=== PATIENT | male | born 1980 | race Caucasian/White ===

== ENCOUNTER 2016-06-15 19:41 | Emergency (ER) | payer MEDICAID ==
[2016-06-15 19:51] VITALS: BP 150/95
--- NOTE | 2016-06-15 20:39 | EDM.PDOC ---
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 He has had chronic back pain since he had a work injury in the spring of last year. He was struck by a falling metal object which hit him in the lower left back. There were no fractures but there was extensive bruising. He didn't get seen for the injury but 2 months later he had bloody diarrhea and passed out. He is found to be in hepatic and renal failure and also to have rhabdomyolysis probably from the injury at work. He underwent dialysis every second day from August 2015 for. 4 months and then his kidneys recovered enough that he could walk dialysis. He still has to be careful with some medications and has been advised by her oil scout not to take nonsteroidal anti-inflammatory medication. Apart from being in the hospital he has not been on pain medication for his back but is increasing pain in the last 3-4 days. No fever or chills no nausea or vomiting. He has return to construction work and has not missed any time recently. He did miss about a year of work altogether from the injury. He did undergo colonoscopy, he's not sure what it found. He can taking acetaminophen and topical treatments for his dental pain without relief. Additional history includes subclavian DVT. This was diagnosed when he presented last year with swelling of the veins of his right arm and pain in the right side of his neck. He is on Coumadin still and has an ultrasound scheduled later this week and decision will be made whether to discontinue his Coumadin. Left Oral/Mouth Pain Score (Numeric/FACES): 8 - Related Data Allergies Allergy/AdvReac Type Severity Reaction Status Date / Time Penicillins Allergy Unknown Rash Verified 11/24/15 15:01 Home Meds: Home Meds Ferrous Sulfate [Ferrous Sulfate] 1 tab PO TID 10/04/15 [History] Metoprolol Succinate [Metoprolol Succinate] 1 tab PO DAILY 10/04/15 [History] Clindamycin HCl 150 mg PO TID #24 capsule 06/15/16 [Rx] Warfarin [Coumadin] 10 mg PO DAILY 06/15/16 [History] oxyCODONE 5 - 10 mg PO Q4HR PRN #16 tab 06/15/16 [Rx] traZODone 100 mg PO ONETIME 06/15/16 [History] Past Medical History HEENT History: Reports: Other (see below) Other HEENT History: dental caries Cardiovascular History: Reports: Hypertension, Other (see below) Other Cardiovascular History: 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 hx of blood clots neck arms back Respiratory History: Reports: Asthma Gastrointestinal History: Reports: Other (see below) (Hepatic failure, probably due to renal failure) Other Gastrointestinal History: recent constipation. Genitourinary History: Reports: Dialysis, Renal disease, Other (see below) ( Renal failure) Other Genitourinary History: kidney failure due to hypertension and rhabdomyolysis Musculoskeletal History: Reports: Fracture (Arm), Other (see below) Other Musculoskeletal History: Rhabdomyolysis from work injury to his low back Neurological History: Reports: Concussion Psychiatric History: Reports: Addiction, Other (see below) Other Psychiatric History: clean past 2 months. Hematologic History: Reports: Other (see below) Other Hematologic History: hx of clotting disorder - Infectious Disease History Infectious Disease History: Reports: Chicken pox - Past Surgical History Musculoskeletal Surgical History: Reports: Arthroscopic knee Social & Family History - Family History Hematologic: Reports: Other (see below) Other Hematologic Family History: clotting disorder - Tobacco Use Smoking Status *Q: Current Every Day Smoker Years of Tobacco use: 20 Packs/Tins Daily: 0.5 Used Tobacco, but Quit: No Second Hand Smoke Exposure: Yes - Caffeine Use Caffeine Use: Reports: Soda - Alcohol Use Days Per Week of Alcohol Use: 0 - Recreational Drug Use Recreational Drug Use: No Drug Use in Last 12 Months: Yes Recreational Drug Type: Reports: Methamphetamine Recreational Drug Use Frequency: Not Used In Over 2 Months ED ROS GENERAL - Review of Systems Review Of Systems: See Below Constitutional: Reports: no symptoms HEENT: Reports: Dental pain. Denies: Ear pain, Rhinitis, Throat pain Respiratory: Reports: No Symptoms, Other (Continues to smoke but considerably less) Cardiovascular: Reports: No symptoms Endocrine: Reports: no symptoms GI/Abdominal: Reports: No symptoms : Reports: no symptoms Musculoskeletal: Reports: back pain Skin: Reports: no symptoms Neurological: Reports: No Symptoms Psychiatric: Reports: No symptoms Hematologic/Lymphatic: Reports: no symptoms Immunologic: Reports: no symptoms ED EXAM, GENERAL - Physical Exam Exam: See Below Exam Limited By: No limitations General Appearance: alert, mild distress, other (Mild elevation of blood pressure otherwise vital signs normal) Eye Exam: bilateral eye: normal inspection Ears: normal external exam Nose: normal inspection Throat/Mouth: Normal inspection, Normal gums, Normal voice, No airway compromise , Other (Impaction and probable caries of all 4 wisdom teeth, very tender left lower third molar) Head: atraumatic Neck: normal inspection, supple. No: lymphadenopathy (R), lymphadenopathy (L) Respiratory/Chest: no respiratory distress, lungs clear, chest non-tender Cardiovascular: normal peripheral pulses, regular rate, rhythm, no murmur GI/Abdominal: non tender Back Exam: normal inspection, CVA tenderness (L) Extremities: normal inspection, non-tender Neurological: alert, no motor/sensory deficits Psychiatric: normal affect, normal mood Skin Exam: Warm, Dry, Intact, Normal color, No rash Course - Vital Signs Last Recorded V/S: Last Vital Signs Temp 36.1 C 06/15/16 19:49 Pulse 71 06/15/16 19:49 Resp 16 06/15/16 19:49 BP 150/95 H 06/15/16 19:49 Pulse Ox 97 06/15/16 19:49 - Re-Assessments/Exams Free Text/Narrative Re-Assessment/Exam: 06/15/16 22:05 35-year-old male with chronic back pain since he had a severe injury to his left low back last spring, resulting in rhabdomyolysis leading to renal and hepatic failure, was on dialysis for 4 months to recover from that. Has not been taking any analgesics for his back for the last few days is in pain from his back and a new pain from his 4 wisdom teeth. He does need an oral surgeon but his appointment isn't for 3 weeks. For his tooth and the pain Prescribed clindamycin 150 mg 3 times a day 10 days Percocet 5/325 one to 2 by mouth 4 times a day when necessary 15 tablets Contact his insurance coming to arrange oral surgery appointment Departure - Departure Time of Disposition: 20:33 Disposition: Home, Self-Care 01 Condition: good Clinical Impression: Dental caries, Impacted third molar tooth, Acute exacerbation of chronic low back pain Prescriptions: oxyCODONE 5 - 10 mg PO Q4HR PRN #16 tab PRN Reason: Moderate to severe pain Clindamycin HCl 150 mg PO TID #24 capsule Instructions: Dental Caries, Chronic Back Pain Referrals: Toan Cuevas PA-C [Primary Care Provider] - Forms: ED Department Discharge Additional Instructions: Please make a oral surgeon appointment, contact your insurance either online her by phone to determine who you can go see
== END 2016-06-15 20:46 | disposition home or self-care (01) ==
LOC: JP.ED 19:41
DX: K02.9 Dental caries, unspecified (principal); K01.1 Impacted teeth; M54.5 Low back pain; G89.29 Other chronic pain; I10 Essential (primary) hypertension; F17.210 Nicotine dependence, cigarettes, uncomplicated; Z98.890 Other specified postprocedural states; Z79.01 Long term (current) use of anticoagulants; Z79.899 Other long term (current) drug therapy; Z88.0 Allergy status to penicillin
CPT/HCPCS: 99283

== ENCOUNTER 2016-06-20 10:37 | Emergency (ER) | payer MEDICAID ==
[2016-06-20 10:54] VITALS: BP 142/70
--- NOTE | 2016-06-20 11:19 | EDM.PDOC ---
[id number] ON LEFT SIDE Time Seen by Provider: 06/20/16 11:00 Source: Reports: Patient History Limitations: Reports: No limitations - History of Present Illness INITIAL COMMENTS - FREE TEXT/NARRATIVE: 35-year-old male with ongoing advanced dental decay and pain. He has an appointment the dentist on Tuesday, is taking his antibiotics but is out of pain medication. Associated symptoms: Denies: fever/chills, nausea/vomiting - Related Data Allergies/ADRs: Allergies Allergy/AdvReac Type Severity Reaction Status Date / Time Penicillins Allergy Unknown Rash Verified 11/24/15 15:01 Home Meds: Home Meds Ferrous Sulfate [Ferrous Sulfate] 1 tab PO ASDIRECTED 10/04/15 [History] Metoprolol Succinate [Metoprolol Succinate] 1 tab PO DAILY 10/04/15 [History] Clindamycin HCl 150 mg PO TID #24 capsule 06/15/16 [Rx] Warfarin [Coumadin] 10 mg PO DAILY 06/15/16 [History] oxyCODONE 5 - 10 mg PO Q4HR PRN #16 tab 06/15/16 [Rx] traZODone 100 mg PO ONETIME 06/15/16 [History] Past Medical History HEENT History: Reports: Other (see below) Other HEENT History: dental caries Cardiovascular History: Reports: Hypertension, Other (see below) Other Cardiovascular History: 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 hx of blood clots neck arms back Respiratory History: Reports: Asthma Gastrointestinal History: Reports: Other (see below) Other Gastrointestinal History: recent constipation. Genitourinary History: Reports: Dialysis, Renal disease, Other (see below) Other Genitourinary History: kidney failure due to hypertension and rhabdomyolysis Musculoskeletal History: Reports: Fracture, Other (see below) Other Musculoskeletal History: Rhabdomyolysis from work injury to his low back Neurological History: Reports: Concussion Psychiatric History: Reports: Addiction, Other (see below) Other Psychiatric History: clean past 2 months. Hematologic History: Reports: Other (see below) Other Hematologic History: hx of clotting disorder - Infectious Disease History Infectious Disease History: Reports: Chicken pox - Past Surgical History Musculoskeletal Surgical History: Reports: Arthroscopic knee Social & Family History - Family History Hematologic: Reports: Other (see below) Other Hematologic Family History: clotting disorder - Tobacco Use Smoking Status *Q: Current Every Day Smoker Years of Tobacco use: 20 Packs/Tins Daily: 0.5 Used Tobacco, but Quit: No Second Hand Smoke Exposure: Yes - Caffeine Use Caffeine Use: Reports: Soda - Alcohol Use Days Per Week of Alcohol Use: 0 - Recreational Drug Use Recreational Drug Use: No Drug Use in Last 12 Months: Yes Recreational Drug Type: Reports: Methamphetamine Recreational Drug Use Frequency: Not Used In Over 2 Months ED ROS ENT - Review of Systems Review Of Systems: See Below Constitutional: Denies: fever, chills Respiratory: Denies: Shortness of Breath GI/Abdominal: Denies: Nausea, Vomiting ED EXAM, ENT - Physical Exam Exam: See Below Exam Limited By: No limitations General Appearance: alert, no apparent distress (Looks uncomfortable but not distressed) Mouth/Throat: Other (Widespread advanced dental decay with deep caries of the second molars) Course - Vital Signs Last Recorded V/S: Last Vital Signs Temp 96.4 F 06/20/16 10:56 Pulse 66 06/20/16 10:56 Resp 14 06/20/16 10:56 BP 142/70 H 06/20/16 10:56 Pulse Ox 97 06/20/16 10:56 - Re-Assessments/Exams Free Text/Narrative Re-Assessment/Exam: 06/20/16 11:17 Patient was supplied with 15 more Percocet to use for pain control until his appointment on Tuesday. He'll continue with clindamycin. Departure - Departure Time of Disposition: 11:27 Disposition: Home, Self-Care 01 Condition: good Clinical Impression: Dental caries, Pain due to dental caries Instructions: Dental Caries Referrals: Toan Cuevas PA-C [Primary Care Provider] - Forms: ED Department Discharge Care Plan Goals: Continue with current medications and take Percocet as prescribed.
== END 2016-06-20 11:27 | disposition home or self-care (01) ==
LOC: JP.ED 10:37
DX: K02.9 Dental caries, unspecified (principal); K08.89 Other specified disorders of teeth and supporting structures; I10 Essential (primary) hypertension; F17.210 Nicotine dependence, cigarettes, uncomplicated; Z79.01 Long term (current) use of anticoagulants; Z79.899 Other long term (current) drug therapy; Z88.0 Allergy status to penicillin
CPT/HCPCS: 99283

== ENCOUNTER 2016-09-17 20:10 | Emergency (ER) | payer MEDICAID ==
[2016-09-17 20:24] VITALS: BP 142/81
[2016-09-17] MEDS ORDERED: Ketorolac 60 MG/2 ML SDV IM ONE (21:11)
--- NOTE | 2016-09-17 21:18 | EDM.PDOC ---
ED HPI GENERAL MEDICAL PROBLEM - General Chief Complaint: ENT Problem Stated Complaint: TOOTHACHE Time Seen by Provider: 09/17/16 20:57 Source of Information: Reports: Patient History Limitations: Reports: No Limitations - History of Present Illness INITIAL COMMENTS - FREE TEXT/NARRATIVE: dental pain for one week, here tonight because unable to tolerate the pain. denies fever, chills, nausea, vomiting. has had consult with Oral Surgery, schedule for surgery in October 11, 2016. Onset: Gradual Duration: Getting Worse Location: Reports: Face, Other (dental) Quality: Reports: Sharp, Stabbing Severity: Moderate Improves with: Reports: Medication Worsens with: Reports: Eating Associated Symptoms: Reports: No Other Symptoms Treatments ADMINISTRATIVE OFFICE SPECIALIST: Reports: Acetaminophen Tooth/Teeth Pain Score (Numeric/FACES): 8 - Related Data Allergies Allergy/AdvReac Type Severity Reaction Status Date / Time Penicillins Allergy Unknown Rash Verified 09/17/16 21:01 Home Meds: Home Meds Ferrous Sulfate [Ferrous Sulfate] 1 tab PO ASDIRECTED 10/04/15 [History] Metoprolol Succinate [Metoprolol Succinate] 1 tab PO DAILY 10/04/15 [History] RX: Clindamycin HCl 150 mg PO TID #24 capsule 06/15/16 [Rx] RX: oxyCODONE 5 - 10 mg PO Q4HR PRN #16 tab 06/15/16 [Rx] RX: traZODone 100 mg PO ONETIME 06/15/16 [History] Warfarin [Coumadin] 10 mg PO DAILY 06/15/16 [History] Past Medical History HEENT History: Reports: Other (See Below) Other HEENT History: dental caries Cardiovascular History: Reports: Hypertension Other Cardiovascular History: 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 hx of blood clots neck arms back Respiratory History: Reports: Asthma Gastrointestinal History: Reports: Other (See Below) Other Gastrointestinal History: recent constipation. Genitourinary History: Reports: Dialysis, Renal Disease Other Genitourinary History: kidney failure due to hypertension and rhabdomyolysis Musculoskeletal History: Reports: Fracture, Other (See Below) Other Musculoskeletal History: Rhabdomyolysis from work injury to his low back Neurological History: Reports: Concussion Psychiatric History: Reports: Addiction, Other (See Below) Other Psychiatric History: clean past 2 months. Hematologic History: Reports: Other (See Below) Other Hematologic History: hx of clotting disorder - Infectious Disease History Infectious Disease History: Reports: Chicken Pox - Past Surgical History Musculoskeletal Surgical History: Reports: Arthroscopic Knee Social & Family History - Family History Hematologic: Reports: Other (See Below) Other Hematologic Family History: clotting disorder - Tobacco Use Smoking Status *Q: Current Every Day Smoker Years of Tobacco use: 20 Packs/Tins Daily: 0.5 Used Tobacco, but Quit: No Second Hand Smoke Exposure: Yes - Caffeine Use Caffeine Use: Reports: Soda - Alcohol Use Days Per Week of Alcohol Use: 0 - Recreational Drug Use Recreational Drug Use: Yes Drug Use in Last 12 Months: Yes Recreational Drug Type: Reports: Methamphetamine Recreational Drug Use Frequency: Not Used In Over 2 Months ED ROS ENT - Review of Systems Review Of Systems: See Below Constitutional: Reports: Other (dental pain) HEENT: Reports: Dental Pain Respiratory: Reports: No Symptoms Cardiovascular: Reports: No Symptoms ED EXAM, ENT - Physical Exam Exam: See Below Exam Limited By: No Limitations General Appearance: Alert, WD/WN, Mild Distress Eye Exam: Bilateral Eye: Normal Inspection Ears: Normal External Exam, Normal Canal, Hearing Grossly Normal, Normal TMs Nose: Normal Inspection, Normal Mucousa, No Blood Mouth/Throat: Normal Lips, Normal Oropharynx, Dental Abcess, Dental Pain, Dental Tenderness, Other (multi missing teeth, left upper molar and right lower molar with large cavities,gums tender) Head: Atraumatic, Normocephalic Neck: Normal Inspection, Supple, Non-Tender, Full Range of Motion Respiratory/Chest: No Respiratory Distress, Lungs Clear, Normal Breath Sounds, No Accessory Muscle Use, Chest Non-Tender Cardiovascular: Regular Rate, Rhythm Course - Vital Signs Last Recorded V/S: Last Vital Signs Temp 36.8 C 09/17/16 21:06 Pulse 86 09/17/16 21:06 Resp 16 09/17/16 21:06 BP 142/81 H 09/17/16 21:06 Pulse Ox 96 09/17/16 21:06 - Orders/Labs/Meds Meds: Medications Discontinued Medications Generic Name Dose Route Start Last Admin Trade Name Freq PRN Reason Stop Dose Admin Ketorolac Tromethamine 60 mg 09/17/16 21:11 09/17/16 21:21 Toradol IM 09/17/16 21:12 60 mg ONETIME ONE Administration - Re-Assessments/Exams Free Text/Narrative Re-Assessment/Exam: 09/17/16 -Toradol 60mg im -script for clindamycin and hydrocodone -advised to follow up as schedule -rtc or er if not improved or sx worse Mr. Cardona agrees with plan of care. Departure - Departure Time of Disposition: 20:40 Disposition: Home, Self-Care 01 Condition: Good Clinical Impression: Dental caries extending into dentin - Discharge Information Instructions: Dental Caries Referrals: PCP,None [Primary Care Provider] - Forms: ED Department Discharge Care Plan Goals: dental pain and infection -Toradol 60mg IM -given script; Clindamycin 300mg take three times a day x 10 days -given script; hydrocodone 5-325mg take one tablet every 4 to 6 hours as need for acute pain #6 -continue over the counter Tylenol as directed for pain or fever take medications as prescribed, return to ER for any increased pain, facial swelling, fever, chills or not improved. Keep appt with Oral Surgeon. - Problem List & Annotations (1) Pain due to dental caries SNOMED Code(s): 56315394, 82533361 Code(s): K02.9 - DENTAL CARIES, UNSPECIFIED Status: Acute Priority: High (2) Dental caries extending into dentin SNOMED Code(s): 901732564 Code(s): K02.62 - DENTAL CARIES ON SMOOTH SURFACE PENETRATING INTO DENTIN Status: Acute Priority: High - Problem List Review Problem List Initiated/Reviewed/Updated: Yes - Assessment/Plan Plan: dental pain and infection -Toradol 60mg IM -given script; Clindamycin 300mg take three times a day x 10 days -given script; hydrocodone 5-325mg take one tablet every 4 to 6 hours as need for acute pain #6 -continue over the counter Tylenol as directed for pain or fever take medications as prescribed, return to ER for any increased pain, facial swelling, fever, chills or not improved. Keep appt with Oral Surgeon.
== END 2016-09-17 21:40 | disposition home or self-care (01) ==
LOC: JP.ED 20:10
DX: K02.9 Dental caries, unspecified (principal); F17.210 Nicotine dependence, cigarettes, uncomplicated; J45.909 Unspecified asthma, uncomplicated; I10 Essential (primary) hypertension; Z79.2 Long term (current) use of antibiotics; Z79.899 Other long term (current) drug therapy; Z79.01 Long term (current) use of anticoagulants; Z88.0 Allergy status to penicillin
CPT/HCPCS: 96372; 99283; J1885

== ENCOUNTER 2016-10-13 21:45 | Emergency (ER) | payer MEDICAID ==
[2016-10-13] MEDS ORDERED: Sodium Chloride 0.9% 1,000 ML IV SCH (23:45)
[2016-10-14] MEDS ORDERED: Iopamidol 612 MG/ML 100 ML Bottle IV STA (01:10)
[2016-10-14] MEDS ORDERED: Sodium Chloride 0.9% 71 ML IV STA (01:10)
[2016-10-14 01:49] VITALS: BP 140/80
--- NOTE | 2016-10-14 02:34 | EDM.PDOC ---
ED HPI GENERAL MEDICAL PROBLEM - General Chief Complaint: Gastrointestinal Problem Stated Complaint: R SIDE PAIN / BLOODY STOOLS Time Seen by Provider: 10/13/16 23:41 Source of Information: Reports: Patient History Limitations: Reports: No Limitations - History of Present Illness INITIAL COMMENTS - FREE TEXT/NARRATIVE: History of present illness: [35-year-old male presenting with bright red blood per rectum for the last 3-4 days. He says that he is having blood with every stool but every third stool seems like all he has is bright red blood. This is never happened before. This came on 34 days ago when he was having some right upper quadrant discomfort and he states that when that discomfort left him is when he started bleeding. He's had no nausea vomiting constipation or diarrhea. He's had no fevers or chills. He does have a history of a clot in his neck and arm for which she is supposed to be taking warfarin. He told me that he missed yesterday's dose.] Review of systems: As per history of present illness and below otherwise all systems reviewed and negative. Past medical history: As per history of present illness and as reviewed below otherwise noncontributory. Surgical history: As per history of present illness and as reviewed below otherwise noncontributory. Social history: No reported history of drug or alcohol abuse. Family history: As per history of present illness and as reviewed below otherwise noncontributory. Physical exam: HEENT: Atraumatic, normocephalic, pupils reactive, negative for conjunctival pallor or scleral icterus, mucous membranes moist, throat clear, neck supple, nontender, trachea midline. Lungs: Clear to auscultation, breath sounds equal bilaterally, chest nontender. Heart: S1S2, regular, negative for clicks, rubs, or JVD. Abdomen: Soft, nondistended, nontender. Negative for masses or hepatosplenomegaly. Negative for costovertebral tenderness. Pelvis: Stable nontender. Genitourinary: Deferred. Rectal: Revealed no hemorrhoids or blood present Extremities: Atraumatic, negative for cords or calf pain. Neurovascular unremarkable. Neuro: Awake, alert, oriented. Cranial nerves II through XII unremarkable. Cerebellum unremarkable. Motor and sensory unremarkable throughout. Exam nonfocal. Diagnostics: [CBC complete dental panel INR UA urine drug screen and d-dimer were all done. Nothing remarkable was discovered. His illness 14.8. It surprising that his INR was 1.0 suggesting that he has not been compliant with his warfarin. Abdominal pelvic CT was also done and negative.] Therapeutics: [He received IV fluids while here] Impression: [Bright red blood per rectum] Plan: [I'm recommending that he follow up in the clinic and that he undergo a colonoscopy] Definitive disposition and diagnosis as appropriate pending reevaluation and review of above. Lower Back Pain Score (Numeric/FACES): 4 Right Upper Abdominal Pain Score (Numeric/FACES): 0 - Related Data Allergies Allergy/AdvReac Type Severity Reaction Status Date / Time Penicillins Allergy Unknown Rash Verified 10/13/16 23:21 Home Meds: Home Meds Metoprolol Succinate [Metoprolol Succinate] 1 tab PO DAILY 10/04/15 [History] Warfarin [Coumadin] 10 mg PO DAILY 06/15/16 [History] traZODone 100 mg PO ONETIME 06/15/16 [History] Acetaminophen [Tylenol Extra Strength] 1,000 mg PO ASDIRECTED PRN 10/13/16 [ History] Past Medical History HEENT History: Reports: Other (See Below) Other HEENT History: dental caries Cardiovascular History: Reports: Blood Clots/VTE/DVT, Hypertension Other Cardiovascular History: 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 hx of blood clots neck arms back Respiratory History: Reports: Asthma Gastrointestinal History: Reports: Other (See Below) Other Gastrointestinal History: recent constipation. Genitourinary History: Reports: Dialysis, Renal Disease Other Genitourinary History: kidney failure due to hypertension and rhabdomyolysis Musculoskeletal History: Reports: Fracture, Other (See Below) Other Musculoskeletal History: Rhabdomyolysis from work injury to his low back Neurological History: Reports: Concussion, Migraines Psychiatric History: Reports: Addiction, Anxiety, Depression Other Psychiatric History: clean past 2 months. Hematologic History: Reports: Other (See Below) Other Hematologic History: hx of clotting disorder - Infectious Disease History Infectious Disease History: Reports: Chicken Pox - Past Surgical History Musculoskeletal Surgical History: Reports: Arthroscopic Knee Social & Family History - Family History Hematologic: Reports: Other (See Below) Other Hematologic Family History: clotting disorder - Tobacco Use Smoking Status *Q: Current Every Day Smoker Years of Tobacco use: 20 Packs/Tins Daily: 1 Used Tobacco, but Quit: No Second Hand Smoke Exposure: Yes - Caffeine Use Caffeine Use: Reports: Soda - Alcohol Use Days Per Week of Alcohol Use: 0 - Recreational Drug Use Recreational Drug Use: Yes Drug Use in Last 12 Months: Yes Recreational Drug Type: Reports: Methamphetamine Recreational Drug Use Frequency: Rarely ED ROS GENERAL - Review of Systems Review Of Systems: ROS reveals no pertinent complaints other than HPI. ED EXAM, GI/ABD - Physical Exam Exam: See Below Course - Vital Signs Last Recorded V/S: Last Vital Signs Temp 36.7 C 10/14/16 01:48 Pulse 75 10/14/16 01:48 Resp 16 10/14/16 01:48 BP 140/80 10/14/16 01:48 Pulse Ox 93 L 10/14/16 01:48 - Orders/Labs/Meds Orders: Active Orders 24 hr Category Date Time Status Abdomen Pelvis w Cont [CT] Stat Exams 10/14/16 01:00 Taken Chest 2V [CR] Stat Exams 10/14/16 01:00 Taken Sodium Chloride 0.9% [Normal Saline] 1,000 ml Med 10/13/16 23:45 Active IV ASDIRECTED Medication Orders Sodium Chloride (Normal Saline) 1,000 mls @ 150 mls/hr IV ASDIRECTED SUMI Last Admin: 10/14/16 00:05 Dose: 150 mls/hr Labs: Laboratory Tests 10/13/16 10/13/16 10/13/16 Range/Units 23:42 23:50 23:50 WBC (4.5-11.0) K/uL RBC (4.30-5.90) M/uL Hgb (12.0-15.0) g/dL Hct (40.0-54.0) % MCV (80-98) fL MCH (27-31) pg MCHC (32-36) % Plt Count (150-400) K/uL Neut % (Auto) (36-66) % Lymph % (Auto) (24-44) % [place] % (Auto) (2-6) % Eos % (Auto) (2-4) % Baso % (Auto) (0-1) % PT (9.5-12.0) sec INR (0.80-1.20) D-Dimer, Quantitative < 100 (0.0-400.0) ng/mL Sodium (140-148) mmol/L Potassium (3.6-5.2) mmol/L Chloride (100-108) mmol/L Carbon Dioxide (21-32) mmol/L Anion Gap (5.0-14.0) mmol/L BUN (7-18) mg/dL Creatinine (0.8-1.3) mg/dL Est Cr Clr Drug Dosing mL/min Estimated GFR (MDRD) (>60) Glucose (74-106) mg/dL Calcium (8.5-10.1) mg/dL Total Bilirubin (0.2-1.0) mg/dL AST (15-37) U/L ALT (12-78) U/L Alkaline Phosphatase (46-116) U/L Troponin I (0.000-0.056) ng/mL C-Reactive Protein (0.0-0.3) mg/dL Total Protein (6.4-8.2) g/dL Albumin (3.4-5.0) g/dL Globulin (2.3-3.5) g/dL Albumin/Globulin Ratio (1.2-2.2) Amylase (25-115) U/L Lipase (73-393) U/L Urine Color Yellow Urine Appearance Clear Urine pH 7.0 (4.5-8.0) Ur Specific [place] 1.015 (1.008-1.030) Urine Protein Negative (NEGATIVE) mg/dL Urine Glucose (UA) Normal (NEGATIVE) mg/dL Urine Ketones Negative (NEGATIVE) mg/dL Urine Occult Blood Negative (NEGATIVE) Urine Nitrite Negative (NEGAITVE) Urine Bilirubin Negative (NEGATIVE) Urine Urobilinogen Normal (NORMAL) mg/dL Ur Leukocyte Esterase Negative (NEGATIVE) Urine RBC 0-5 (0-5) Urine WBC 0-5 (0-5) Ur Epithelial Cells Rare Amorphous Sediment Not seen Urine Bacteria Rare Urine Mucus Not seen Urine Opiates Screen Negative (NEGATIVE) Ur Oxycodone Screen Negative (NEGATIVE) Urine Methadone Screen Negative (NEGATIVE) Ur Propoxyphene Screen Negative (NEGATIVE) Ur Barbiturates Screen Negative (NEGATIVE) Ur Tricyclics Screen Negative (NEGATIVE) Ur Phencyclidine Scrn Negative (NEGATIVE) Ur Amphetamine Screen Negative (NEGATIVE) U Methamphetamines Scrn Negative (NEGATIVE) Urine MDMA Screen Negative (NEGATIVE) U Benzodiazepines Scrn Negative (NEGATIVE) U Cocaine Metab Screen Negative (NEGATIVE) U Marijuana (THC) Screen Negative (NEGATIVE) 07/19/17 07/19/17 07/19/17 Range/Units 23:55 23:55 23:55 WBC (4.5-11.0) K/uL RBC (4.30-5.90) M/uL Hgb (12.0-15.0) g/dL Hct (40.0-54.0) % MCV (80-98) fL MCH (27-31) pg MCHC (32-36) % Plt Count (150-400) K/uL Neut % (Auto) (36-66) % Lymph % (Auto) (24-44) % [place] % (Auto) (2-6) % Eos % (Auto) (2-4) % Baso % (Auto) (0-1) % PT 10.7 (9.5-12.0) sec INR 1.00 (0.80-1.20) D-Dimer, Quantitative (0.0-400.0) ng/mL Sodium 140 (140-148) mmol/L Potassium 3.7 (3.6-5.2) mmol/L Chloride 103 (100-108) mmol/L Carbon Dioxide 30 (21-32) mmol/L Anion Gap 7.5 (5.0-14.0) mmol/L BUN 17 (7-18) mg/dL Creatinine 1.1 (0.8-1.3) mg/dL Est Cr Clr Drug Dosing 82.31 mL/min Estimated GFR (MDRD) > 60 (>60) Glucose 84 (74-106) mg/dL Calcium 8.0 L (8.5-10.1) mg/dL Total Bilirubin 0.3 (0.2-1.0) mg/dL AST 35 (15-37) U/L ALT 60 (12-78) U/L Alkaline Phosphatase 73 (46-116) U/L Troponin I < 0.017 (0.000-0.056) ng/mL C-Reactive Protein 0.23 (0.0-0.3) mg/dL Total Protein 6.6 (6.4-8.2) g/dL Albumin 3.5 (3.4-5.0) g/dL Globulin 3.1 (2.3-3.5) g/dL Albumin/Globulin Ratio 1.1 L (1.2-2.2) Amylase 68 (25-115) U/L Lipase 213 (73-393) U/L Urine Color Urine Appearance Urine pH (4.5-8.0) Ur Specific [place] (1.008-1.030) Urine Protein (NEGATIVE) mg/dL Urine Glucose (UA) (NEGATIVE) mg/dL Urine Ketones (NEGATIVE) mg/dL Urine Occult Blood (NEGATIVE) Urine Nitrite (NEGAITVE) Urine Bilirubin (NEGATIVE) Urine Urobilinogen (NORMAL) mg/dL Ur Leukocyte Esterase (NEGATIVE) Urine RBC (0-5) Urine WBC (0-5) Ur Epithelial Cells Amorphous Sediment Urine Bacteria Urine Mucus Urine Opiates Screen (NEGATIVE) Ur Oxycodone Screen (NEGATIVE) Urine Methadone Screen (NEGATIVE) Ur Propoxyphene Screen (NEGATIVE) Ur Barbiturates Screen (NEGATIVE) Ur Tricyclics Screen (NEGATIVE) Ur Phencyclidine Scrn (NEGATIVE) Ur Amphetamine Screen (NEGATIVE) U Methamphetamines Scrn (NEGATIVE) Urine MDMA Screen (NEGATIVE) U Benzodiazepines Scrn (NEGATIVE) U Cocaine Metab Screen (NEGATIVE) U Marijuana (THC) Screen (NEGATIVE) 10/13/16 Range/Units 23:59 WBC 9.8 (4.5-11.0) K/uL RBC 4.79 (4.30-5.90) M/uL Hgb 14.8 (12.0-15.0) g/dL Hct 44.0 (40.0-54.0) % MCV 92 (80-98) fL MCH 31 (27-31) pg MCHC 34 (32-36) % Plt Count 241 (150-400) K/uL Neut % (Auto) 66 (36-66) % Lymph % (Auto) 25 (24-44) % [place] % (Auto) 7 H (2-6) % Eos % (Auto) 1 L (2-4) % Baso % (Auto) 0 (0-1) % PT (9.5-12.0) sec INR (0.80-1.20) D-Dimer, Quantitative (0.0-400.0) ng/mL Sodium (140-148) mmol/L Potassium (3.6-5.2) mmol/L Chloride (100-108) mmol/L Carbon Dioxide (21-32) mmol/L Anion Gap (5.0-14.0) mmol/L BUN (7-18) mg/dL Creatinine (0.8-1.3) mg/dL Est Cr Clr Drug Dosing mL/min Estimated GFR (MDRD) (>60) Glucose (74-106) mg/dL Calcium (8.5-10.1) mg/dL Total Bilirubin (0.2-1.0) mg/dL AST (15-37) U/L ALT (12-78) U/L Alkaline Phosphatase (46-116) U/L Troponin I (0.000-0.056) ng/mL C-Reactive Protein (0.0-0.3) mg/dL Total Protein (6.4-8.2) g/dL Albumin (3.4-5.0) g/dL Globulin (2.3-3.5) g/dL Albumin/Globulin Ratio (1.2-2.2) Amylase (25-115) U/L Lipase (73-393) U/L Urine Color Urine Appearance Urine pH (4.5-8.0) Ur Specific [place] (1.008-1.030) Urine Protein (NEGATIVE) mg/dL Urine Glucose (UA) (NEGATIVE) mg/dL Urine Ketones (NEGATIVE) mg/dL Urine Occult Blood (NEGATIVE) Urine Nitrite (NEGAITVE) Urine Bilirubin (NEGATIVE) Urine Urobilinogen (NORMAL) mg/dL Ur Leukocyte Esterase (NEGATIVE) Urine RBC (0-5) Urine WBC (0-5) Ur Epithelial Cells Amorphous Sediment Urine Bacteria Urine Mucus Urine Opiates Screen (NEGATIVE) Ur Oxycodone Screen (NEGATIVE) Urine Methadone Screen (NEGATIVE) Ur Propoxyphene Screen (NEGATIVE) Ur Barbiturates Screen (NEGATIVE) Ur Tricyclics Screen (NEGATIVE) Ur Phencyclidine Scrn (NEGATIVE) Ur Amphetamine Screen (NEGATIVE) U Methamphetamines Scrn (NEGATIVE) Urine MDMA Screen (NEGATIVE) U Benzodiazepines Scrn (NEGATIVE) U Cocaine Metab Screen (NEGATIVE) U Marijuana (THC) Screen (NEGATIVE) Meds: Medications Generic Name Dose Route Start Last Admin Trade Name Freq PRN Reason Stop Dose Admin Sodium Chloride 1,000 mls @ 150 mls/hr 10/13/16 23:45 10/14/16 00:05 Normal Saline IV 150 mls/hr ASDIRECTED SUMI Administration Discontinued Medications Generic Name Dose Route Start Last Admin Trade Name Freq PRN Reason Stop Dose Admin Sodium Chloride 71 mls @ 3.1 mls/sec 10/14/16 01:10 10/14/16 01:24 Normal Saline IV 10/14/16 01:11 3.1 mls/sec ASDIRECTED STA Administration Iopamidol 100 ml 10/14/16 01:10 10/14/16 01:24 Isovue-300 (61%) IV 10/14/16 01:11 100 ml . DIRECTED STA Administration Departure - Departure Time of Disposition: 02:34 Disposition: Home, Self-Care 01 Condition: Good Clinical Impression: Bright red blood per rectum - Discharge Information Forms: ED Department Discharge Additional Instructions: As we discussed please follow-up with your provider as soon as possible so that he can make arrangements to have a colonoscopy. If you cannot get into your provider I would just recommend seeing whoever you can see first. - My Orders Last 24 Hours: My Active Orders 10/13/16 23:45 Sodium Chloride 0.9% [Normal Saline] 1,000 ml IV ASDIRECTED 10/14/16 01:00 Abdomen Pelvis w Cont [CT] Stat Chest 2V [CR] Stat - Assessment/Plan Last 24 Hours: My Active Orders 10/13/16 23:45 Sodium Chloride 0.9% [Normal Saline] 1,000 ml IV ASDIRECTED 10/14/16 01:00 Abdomen Pelvis w Cont [CT] Stat Chest 2V [CR] Stat
--- NOTE | 2016-10-14 09:11 | CR ---
Chest 2V HISTORY: Shortness of breath. COMPARISON: 11/24/2015. FINDINGS: Cardiac size and pulmonary vessels normal. No focal infiltrates or effusions.
== END 2016-10-14 02:38 | disposition home or self-care (01) ==
LOC: JP.ED 21:45
DX: K62.5 Hemorrhage of anus and rectum (principal); I12.9 Hypertensive chronic kidney disease with stage 1 through stage 4 chronic kidney disease, or unspecified chronic kidney disease; N18.9 Chronic kidney disease, unspecified; F17.210 Nicotine dependence, cigarettes, uncomplicated; J45.909 Unspecified asthma, uncomplicated; G43.909 Migraine, unspecified, not intractable, without status migrainosus; F41.9 Anxiety disorder, unspecified; F32.9 Major depressive disorder, single episode, unspecified; Z99.2 Dependence on renal dialysis; Z86.718 Personal history of other venous thrombosis and embolism; Z79.01 Long term (current) use of anticoagulants; Z88.0 Allergy status to penicillin; Z79.899 Other long term (current) drug therapy
CPT/HCPCS: 36415; 71020; 74177; 80053; 80305; 81001; 82150; 83690; 84484; 85025; 85379; 85610; 86140; 96360; 96361; 99283; J7030; J7040; Q9967

== ENCOUNTER 2016-11-01 06:51 | Day surgery (SDC) | payer MEDICAID ==
[2016-11-01] MEDS ORDERED: Propofol 200 MG/20 ML SDV ONE ×2 (07:00→08:33)
[2016-11-01] MEDS ORDERED: fentaNYL 100 MCG/2 ML SDV ONE (07:00)
[2016-11-01] MEDS ORDERED: Midazolam 1 MG/ML 2 ML SDV ONE (07:00)
[2016-11-01] MEDS ORDERED: Lactated Ringers 1,000 ML IV SCH (08:30)
[2016-11-01 09:22] VITALS: BP 134/73
--- NOTE | 2016-11-01 13:53 | OR ---
DATE OF PROCEDURE: 11/01/2016 POSTOPERATIVE DIAGNOSIS: Hematochezia. POSTOPERATIVE DIAGNOSES: 1. Hematochezia, etiology unknown. 2. Minor hemorrhoids. PROCEDURE: Colonoscopy to the cecum. ANESTHESIA: IV anesthesia with monitored anesthesia care. INDICATION: This 35-year-old white male is referred for a colonoscopy because of hematochezia. He was on Coumadin, this has been stopped. I counseled him for a colonoscopy with possible biopsy and/or polypectomy including risks and alternatives, and he gave his informed consent to proceed. DESCRIPTION OF PROCEDURE: The patient was placed in the left lateral decubitus position. IV anesthesia was administered by the Anesthesia Service. Time-out was held. A rectal exam was performed, which was unremarkable. The flexible video Olympus colonoscope was introduced through his anus, up his rectum, and out his colon all the way to the cecum. Once the cecum was reached, the scope was slowly withdrawn, examining the mucosa throughout. No mucosal abnormalities were noted. No old or new blood was seen anywhere in the lower gastrointestinal tract. We saw nothing that we would expect to bleed. The scope was retroflexed in the rectum with the distal rectum showing some minor hemorrhoidal tissue present. The scope was straightened and removed. He tolerated the procedure well. Luiz Cantu MD /[id number] MTDD
== END 2016-11-01 09:28 | disposition home or self-care (01) ==
LOC: JP.SDS 06:51
PROVIDERS: ATTEND Surgery
DX: K64.9 Unspecified hemorrhoids (principal); K92.1 Melena; I10 Essential (primary) hypertension; F41.9 Anxiety disorder, unspecified; F32.9 Major depressive disorder, single episode, unspecified; N17.9 Acute kidney failure, unspecified; Z88.0 Allergy status to penicillin; F17.210 Nicotine dependence, cigarettes, uncomplicated
CPT/HCPCS: 45378; J2250; J2704; J3010; J7120

== ENCOUNTER 2017-04-12 14:13 | Emergency (ER) | payer MEDICAID ==
[2017-04-12] MEDS ORDERED: Nicotine 14 MG/24 Hr Patch TRDERM ONE (14:42)
--- NOTE | 2017-04-12 15:06 | EDM.PDOCBH ---
<OfficerLarry - Last Filed: 04/12/17 17:32> ED HPI GENERAL MEDICAL PROBLEM - General Chief Complaint: Behavioral/Psych Stated Complaint: EVAL Time Seen by Provider: 04/12/17 15:02 Source of Information: Reports: Patient, Police, RN Notes Reviewed History Limitations: Reports: No Limitations - History of Present Illness INITIAL COMMENTS - FREE TEXT/NARRATIVE: 36-year-old gentleman presents emergency department today complaint of suicidal ideation. He was brought in by law enforcement he has been using methamphetamine states he last used illicit drugs about 4 days ago he does use IV medications also has had unprotected intercourse about a week ago admits that his plan would be to use a firearm over the last couple days he has had increasing thoughts of harming himself. He also complains of a tender left swollen testicle Left Perineal Area Pain Score (Numeric/FACES): 7 - Related Data Allergies Allergy/AdvReac Type Severity Reaction Status Date / Time Penicillins Allergy Unknown Rash Verified 04/12/17 14:30 Home Meds: Home Meds Metoprolol Succinate [Metoprolol Succinate] 50 mg PO DAILY 10/04/15 [History] Warfarin [Coumadin] 10 mg PO .THURS 06/15/16 [History] traZODone 100 mg PO BEDTIME 06/15/16 [History] Acetaminophen [Tylenol Extra Strength] 1,000 mg PO ASDIRECTED PRN 10/13/16 [ History] Warfarin [Coumadin] 5 mg PO .MTWFSS 10/28/16 [History] Doxycycline [Vibramycin] 100 mg PO BID #20 cap 04/12/17 [Rx] Past Medical History HEENT History: Reports: Other (See Below) Other HEENT History: dental caries Cardiovascular History: Reports: Blood Clots/VTE/DVT, Hypertension Other Cardiovascular History: 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 hx of blood clots neck arms back Respiratory History: Reports: Asthma Gastrointestinal History: Reports: Other (See Below) Other Gastrointestinal History: recent constipation. blood in stool 2016 Genitourinary History: Reports: Dialysis, Renal Disease Other Genitourinary History: kidney failure due to hypertension and rhabdomyolysis Musculoskeletal History: Reports: Back Pain, Chronic, Fracture, Other (See Below ) Other Musculoskeletal History: Rhabdomyolysis from work injury to his low back Neurological History: Reports: Concussion, Migraines Psychiatric History: Reports: Addiction, Anxiety, Depression, Suicide Attempt, Suicidal Ideation Other Psychiatric History: clean at least a year Hematologic History: Reports: Other (See Below) Other Hematologic History: hx of clotting disorder - Infectious Disease History Infectious Disease History: Reports: Chicken Pox - Past Surgical History Musculoskeletal Surgical History: Reports: Arthroscopic Knee Social & Family History - Family History Family Medical History: Noncontributory Hematologic: Reports: Other (See Below) Other Hematologic Family History: clotting disorder - Tobacco Use Smoking Status *Q: Heavy Tobacco Smoker Years of Tobacco use: 20 Packs/Tins Daily: 1 Used Tobacco, but Quit: No Second Hand Smoke Exposure: No - Caffeine Use Caffeine Use: Reports: Coffee, Soda - Alcohol Use Days Per Week of Alcohol Use: 0 - Recreational Drug Use Recreational Drug Use: Yes Drug Use in Last 12 Months: Yes Recreational Drug Type: Reports: Methamphetamine Recreational Drug Use Frequency: Daily ED ROS GENERAL - Review of Systems Review Of Systems: See Below Constitutional: Denies: Fever, Chills HEENT: Reports: No Symptoms Respiratory: Reports: No Symptoms Cardiovascular: Reports: No Symptoms GI/Abdominal: Reports: No Symptoms : Reports: Other (Left swollen testicle). Denies: Dysuria, Flank Pain Musculoskeletal: Reports: No Symptoms Skin: Reports: No Symptoms Neurological: Reports: No Symptoms Psychiatric: Reports: Anxiety, Depression, Hallucinations, Suicidal Ideation. Denies: Homicidal Ideation ED EXAM, BEHAVIORAL HEALTH - Physical Exam Exam: See Below Exam Limited By: No Limitations General Appearance: Alert, WD/WN, No Apparent Distress Neck: Normal Inspection, Supple, Non-Tender, Full Range of Motion Respiratory/Chest: No Respiratory Distress, Lungs Clear, Normal Breath Sounds, No Accessory Muscle Use Cardiovascular: Regular Rate, Rhythm, No Murmur GI/Abdominal: Soft, Non-Tender (Male) Exam: No Hernia, Circumcised, Scrotum Tenderness (L). No: Scrotum Tenderness (R), Urethral Discharge COURSE, BEHAVIORAL HEALTH COMP - Course Vital Signs: Last Vital Signs Temp 36.9 C 04/12/17 18:37 Pulse 93 04/12/17 18:37 Resp 16 04/12/17 18:37 BP 139/87 04/12/17 18:37 Pulse Ox 96 04/12/17 18:37 Orders, Labs, Meds: Active Orders 24 hr Category Date Time Status Scrotum and Contents [US] Stat Exams 04/12/17 15:25 Taken CHLAMYDIA,AND GC BY APTIMA Urgent Lab 04/12/17 15:18 Received HEPATITIS PANEL,ACUTE [REF] Stat Lab 04/12/17 15:13 Received RPR-TREP PALLIDIUM AB,REFLEX [REF] Stat Lab 04/12/17 15:13 Received Doxycycline [Vibramycin] Med 04/12/17 17:00 Active 100 mg PO BID Medication Orders Doxycycline Hyclate (Vibramycin) 100 mg PO BID SUMI Last Admin: 04/12/17 16:45 Dose: 100 mg Laboratory Tests 04/12/17 04/12/17 04/12/17 Range/Units 15:03 15:03 15:08 WBC 11.3 H (4.5-11.0) K/uL RBC 5.35 (4.30-5.90) M/uL Hgb 16.2 H (12.0-15.0) g/dL Hct 47.4 (40.0-54.0) % MCV 89 (80-98) fL MCH 30 (27-31) pg MCHC 34 (32-36) % Plt Count 345 (150-400) K/uL Neut % (Auto) 78 H (36-66) % Lymph % (Auto) 14 L (24-44) % [place] % (Auto) 7 H (2-6) % Eos % (Auto) 1 L (2-4) % Baso % (Auto) 0 (0-1) % Sodium (140-148) mmol/L Potassium (3.6-5.2) mmol/L Chloride (100-108) mmol/L Carbon Dioxide (21-32) mmol/L Anion Gap (5.0-14.0) mmol/L BUN (7-18) mg/dL Creatinine (0.8-1.3) mg/dL Est Cr Clr Drug Dosing mL/min Estimated GFR (MDRD) (>60) Glucose (74-106) mg/dL Calcium (8.5-10.1) mg/dL Total Bilirubin (0.2-1.0) mg/dL AST (15-37) U/L ALT (12-78) U/L Alkaline Phosphatase (46-116) U/L Total Protein (6.4-8.2) g/dL Albumin (3.4-5.0) g/dL Globulin (2.3-3.5) g/dL Albumin/Globulin Ratio (1.2-2.2) TSH, Ultra Sensitive (0.358-3.740) uIU/mL Urine Color Yellow Urine Appearance Cloudy Urine pH 6.0 (4.5-8.0) Ur Specific [place] 1.025 (1.008-1.030) Urine Protein 30 H (NEGATIVE) mg/dL Urine Glucose (UA) Normal (NEGATIVE) mg/dL Urine Ketones Negative (NEGATIVE) mg/dL Urine Occult Blood Large (NEGATIVE) Urine Nitrite Negative (NEGAITVE) Urine Bilirubin Negative (NEGATIVE) Urine Urobilinogen Normal (NORMAL) mg/dL Ur Leukocyte Esterase Moderate (NEGATIVE) Urine RBC 5-10 H (0-5) Urine WBC Semi-packed H (0-5) Ur Epithelial Cells Few Amorphous Sediment Not seen Urine Bacteria Many Urine Mucus Moderate Urine Opiates Screen Negative (NEGATIVE) Ur Oxycodone Screen Negative (NEGATIVE) Urine Methadone Screen Negative (NEGATIVE) Ur Propoxyphene Screen Negative (NEGATIVE) Ur Barbiturates Screen Negative (NEGATIVE) Ur Tricyclics Screen Negative (NEGATIVE) Ur Phencyclidine Scrn Negative (NEGATIVE) Ur Amphetamine Screen Positive H (NEGATIVE) U Methamphetamines Scrn Positive H (NEGATIVE) Urine MDMA Screen Negative (NEGATIVE) U Benzodiazepines Scrn Negative (NEGATIVE) U Cocaine Metab Screen Negative (NEGATIVE) U Marijuana (THC) Screen Negative (NEGATIVE) HIV-1 Ab Rapid Screen (NON-REACT.) 04/12/17 04/12/17 04/12/17 Range/Units 15:08 15:08 15:13 WBC (4.5-11.0) K/uL RBC (4.30-5.90) M/uL Hgb (12.0-15.0) g/dL Hct (40.0-54.0) % MCV (80-98) fL MCH (27-31) pg MCHC (32-36) % Plt Count (150-400) K/uL Neut % (Auto) (36-66) % Lymph % (Auto) (24-44) % [place] % (Auto) (2-6) % Eos % (Auto) (2-4) % Baso % (Auto) (0-1) % Sodium 142 (140-148) mmol/L Potassium 4.5 (3.6-5.2) mmol/L Chloride 102 (100-108) mmol/L Carbon Dioxide 31 (21-32) mmol/L Anion Gap 9.3 (5.0-14.0) mmol/L BUN 17 (7-18) mg/dL Creatinine 1.0 (0.8-1.3) mg/dL Est Cr Clr Drug Dosing 89.69 mL/min Estimated GFR (MDRD) > 60 (>60) Glucose 90 (74-106) mg/dL Calcium 9.2 (8.5-10.1) mg/dL Total Bilirubin 0.4 (0.2-1.0) mg/dL AST 21 (15-37) U/L ALT 40 (12-78) U/L Alkaline Phosphatase 72 (46-116) U/L Total Protein 7.2 (6.4-8.2) g/dL Albumin 3.6 (3.4-5.0) g/dL Globulin 3.6 H (2.3-3.5) g/dL Albumin/Globulin Ratio 1.0 L (1.2-2.2) TSH, Ultra Sensitive 1.459 (0.358-3.740) uIU/mL Urine Color Urine Appearance Urine pH (4.5-8.0) Ur Specific [place] (1.008-1.030) Urine Protein (NEGATIVE) mg/dL Urine Glucose (UA) (NEGATIVE) mg/dL Urine Ketones (NEGATIVE) mg/dL Urine Occult Blood (NEGATIVE) Urine Nitrite (NEGAITVE) Urine Bilirubin (NEGATIVE) Urine Urobilinogen (NORMAL) mg/dL Ur Leukocyte Esterase (NEGATIVE) Urine RBC (0-5) Urine WBC (0-5) Ur Epithelial Cells Amorphous Sediment Urine Bacteria Urine Mucus Urine Opiates Screen (NEGATIVE) Ur Oxycodone Screen (NEGATIVE) Urine Methadone Screen (NEGATIVE) Ur Propoxyphene Screen (NEGATIVE) Ur Barbiturates Screen (NEGATIVE) Ur Tricyclics Screen (NEGATIVE) Ur Phencyclidine Scrn (NEGATIVE) Ur Amphetamine Screen (NEGATIVE) U Methamphetamines Scrn (NEGATIVE) Urine MDMA Screen (NEGATIVE) U Benzodiazepines Scrn (NEGATIVE) U Cocaine Metab Screen (NEGATIVE) U Marijuana (THC) Screen (NEGATIVE) HIV-1 Ab Rapid Screen Non-reactive (NON-REACT.) Medications Generic Name Dose Route Start Last Admin Trade Name Freq PRN Reason Stop Dose Admin Doxycycline Hyclate 100 mg 04/12/17 17:00 04/12/17 16:45 Vibramycin PO 100 mg BID SUMI Administration Discontinued Medications Generic Name Dose Route Start Last Admin Trade Name Sydney PRN Reason Stop Dose Admin Ceftriaxone Sodium 250 mg/ 0 mg 04/12/17 16:30 04/12/17 16:46 Lidocaine HCl 0.5 ml IM 04/12/17 16:31 1 inj ONETIME ONE Administration Ketorolac Tromethamine 60 mg 04/12/17 16:51 04/12/17 17:11 Toradol IM 04/12/17 16:52 60 mg ONETIME ONE Administration Nicotine 14 mg 04/12/17 14:42 04/12/17 14:52 Habitrol TRDERM 04/12/17 14:43 14 mg ONETIME ONE Administration Departure - Departure Disposition: DC/Tfer to Psych Hosp/Unit [facility] Clinical Impression: Depressive disorder, Suicidal ideation, Epididymitis - Discharge Information Referrals: Toan Cuevas PA-C [Primary Care Provider] - Forms: ED Department Discharge - Assessment/Plan Plan: Assessment Acuity = acute Site and laterality = epididymitis, suicidal ideation complicated patient with known history of methamphetamine use Etiology = bacterial cause for the epididymitis unclear etiology for suicidal ideation probable depression component Manifestations = left swollen red testicle Location of injury = Home Lab values = CBC, CMP unremarkable urinalysis does have packed WBCs consistent with pyuria urine drug screen positive for methamphetamine, HIV 1 and 2 are negative Chlamydia gonorrhea hepatitis panel all pending Plan He was given 250 mg Rocephin started on.see 100 mg by mouth twice a day 10 days continue trying to find placement for him for suicidal ideation This note was dictated using [employer] voice recognition software please call with any questions on syntax or [place]. <Keenan Mcdnoough - Last Filed: 04/12/17 19:01> COURSE, BEHAVIORAL HEALTH COMP - Course Re-Assessment/Re-Exam: Patient has been accepted at [facility] Diagnosis Depressive disorder Suicidal ideation Epididymitis Transfer hold completed Has been prescribed doxycycline 100 mg twice daily for 10 days Departure - Departure Time of Disposition: 20:00 Condition: Good
[2017-04-12] MEDS ORDERED: cefTRIAXone 0.25 GM, Lidocaine 1% 2.1 ML IM ONE ×2 (16:10)
[2017-04-12] MEDS ORDERED: cefTRIAXone 250 MG, Lidocaine 1% 0.5 ML IM ONE ×2 (16:30)
[2017-04-12] MEDS ORDERED: Ketorolac 60 MG/2 ML SDV IM ONE (16:51)
[2017-04-12] MEDS ORDERED: Doxycycline 100 MG Cap PO SCH (17:00)
[2017-04-12 22:39] VITALS: BP 125/76
--- NOTE | 2017-04-13 08:28 | US ---
Scrotum and Contents HISTORY: pain swelling left testicle FINDINGS: Both testicles are within normal limits in size and echogenicity. The right testicle measures 2.7 x 2 .1 x 1.7 cm. The left measures 3.1 x 2.4 x 1.6 cm. Homogeneous echotexture is seen throughout both te sticles. No cystic or solid testicular mass is identified. There is good symmetric color Doppler bloo d flow and normal Doppler waveform within each testicle. There is no evidence for testicular torsion. Tail of the left epididymis is prominent with increased color Doppler flow suggesting possible left e pididymitis. Right epididymis is unremarkable. No hydrocele or varicocele formation can be seen. No e pididymal mass or cyst is present. There is no scrotal wall thickening. IMPRESSION: 1. No testicular abnormality identified. No signs of mass, testicular inflammation, or evidence for t orsion. 2. Enlarged tail of the left epididymis with increased color Doppler blood flow suggests possible lef t epididymitis.
== END 2017-04-12 23:56 ==
LOC: JP.ED 14:13
DX: F32.9 Major depressive disorder, single episode, unspecified (principal); R45.851 Suicidal ideations; N45.1 Epididymitis; B96.89 Other specified bacterial agents as the cause of diseases classified elsewhere; F15.90 Other stimulant use, unspecified, uncomplicated; F17.210 Nicotine dependence, cigarettes, uncomplicated; Z88.0 Allergy status to penicillin; Z79.01 Long term (current) use of anticoagulants; Z79.899 Other long term (current) drug therapy
CPT/HCPCS: 36415; 76870; 80053; 80074; 80305; 81001; 84443; 85025; 86780; 87449; 87491; 87591; 96372; 99285; A9270; J0696; J1885; 99284

== ENCOUNTER 2019-07-30 15:16 | Emergency (ER) | payer MEDICAID ==
[2019-07-30 15:41] VITALS: BP 166/99; PULSE 117
[2019-07-30] MEDS ORDERED: Ketorolac 60 MG/2 ML SDV IM ONE (15:59)
--- NOTE | 2019-07-30 16:03 | EDM.PDOC ---
ED HPI GENERAL MEDICAL PROBLEM - General Chief Complaint: General Stated Complaint: CHEST PAIN Time Seen by Provider: 07/30/19 15:38 Source of Information: Reports: Patient, Old Records, RN Notes Reviewed History Limitations: Reports: No Limitations - History of Present Illness INITIAL COMMENTS - FREE TEXT/NARRATIVE: 38-year-old gentleman presents emergency department a complaint of chest pain, he has had chest pain for 10 days has been extensively evaluated by the urgent care department which included CBC CMP troponin EKG chest x-ray upper extremity ultrasound and CT angiography of the chest all studies were unremarkable. He presents to the emergency department today for further evaluation he does have a history of pulmonary embolism not taking any blood thinner secondary to cost. He has not taken anything for the pain - Related Data Allergies Allergy/AdvReac Type Severity Reaction Status Date / Time Penicillins Allergy Unknown Rash Verified 07/30/19 15:30 Home Meds: Home Meds traZODone 100 mg PO BEDTIME 06/15/16 [History] Past Medical History HEENT History: Reports: Other (See Below) Other HEENT History: dental caries Cardiovascular History: Reports: Blood Clots/VTE/DVT, Hypertension Other Cardiovascular History: 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 hx of blood clots neck arms back Respiratory History: Reports: Asthma Gastrointestinal History: Reports: Other (See Below) Other Gastrointestinal History: recent constipation. blood in stool 2016 Genitourinary History: Reports: Dialysis, Renal Disease Other Genitourinary History: kidney failure due to hypertension and rhabdomyolysis Musculoskeletal History: Reports: Back Pain, Chronic, Fracture, Other (See Below ) Other Musculoskeletal History: Rhabdomyolysis from work injury to his low back Neurological History: Reports: Concussion, Migraines Psychiatric History: Reports: Addiction, Anxiety, Depression, Suicide Attempt, Suicidal Ideation Other Psychiatric History: clean at least a year Hematologic History: Reports: Other (See Below) Other Hematologic History: hx of clotting disorder - Infectious Disease History Infectious Disease History: Reports: Chicken Pox - Past Surgical History Musculoskeletal Surgical History: Reports: Arthroscopic Knee Social & Family History - Family History Family Medical History: Noncontributory Hematologic: Reports: Other (See Below) Other Hematologic Family History: clotting disorder - Tobacco Use Packs/Tins Daily: 1 - Caffeine Use Caffeine Use: Reports: Soda - Recreational Drug Use Recreational Drug Use: Yes Recreational Drug Type: Reports: Methamphetamine Recreational Drug Use Frequency: Monthly ED ROS GENERAL - Review of Systems Review Of Systems: See Below Constitutional: Reports: No Symptoms HEENT: Reports: No Symptoms Respiratory: Reports: No Symptoms Cardiovascular: Reports: Chest Pain GI/Abdominal: Reports: No Symptoms ED EXAM, GENERAL - Physical Exam Exam: See Below Exam Limited By: No Limitations General Appearance: Alert, WD/WN, No Apparent Distress Neck: Normal Inspection, Supple, Non-Tender, Full Range of Motion Respiratory/Chest: No Respiratory Distress (He can smell the stickiness), Lungs Clear, Normal Breath Sounds, No Accessory Muscle Use, Other (Chest is tender to palpation along the right side superior aspect) Cardiovascular: Regular Rate, Rhythm, No Murmur Course - Vital Signs Last Recorded V/S: Last Vital Signs Temp 98.9 F 07/30/19 15:31 Pulse 117 H 07/30/19 15:31 Resp 18 07/30/19 15:31 BP 166/99 H 07/30/19 15:31 Pulse Ox 97 07/30/19 15:31 - Orders/Labs/Meds Meds: Medications Discontinued Medications Generic Name Dose Route Start Last Admin Trade Name Sydney PRN Reason Stop Dose Admin Ketorolac Tromethamine 60 mg 07/30/19 15:59 07/30/19 16:03 Toradol IM 07/30/19 16:00 60 mg ONETIME ONE Administration Departure - Departure Time of Disposition: 16:34 Disposition: Home, Self-Care 01 Condition: Fair Clinical Impression: Chest wall pain - Discharge Information Instructions: Chest Wall Pain, [id number] Referrals: PCP,None [Primary Care Provider] - Forms: ED Department Discharge Additional Instructions: Try the ibuprofen for the next 3 to 4 days and then establish with primary care for further evaluation, call or return to the emergency department worsening of symptoms Sepsis Event Note - Evaluation Sepsis Screening Result: No Definite Risk - Focused Exam Vital Signs: Vital Signs Temp Pulse Resp BP Pulse Ox 07/30/19 15:31 98.9 F 117 H 18 166/99 H 97 07/30/19 15:26 98.9 F 117 H 18 166/99 H 97 Date Exam was Performed: 07/30/19 Time Exam was Performed: 16:34 - Assessment/Plan Plan: Assessment Acuity = acute Site and laterality = chest wall pain Etiology = probable pleurisy Manifestations = none Location of injury = Home Lab values = none Plan He had some relief with the Toradol provided plan is to use ibuprofen over the next couple days and establish with primary care for further evaluation This note was dictated using [employer] voice recognition software please call with any questions on syntax or grammar.
== END 2019-07-30 16:50 | disposition home or self-care (01) ==
LOC: JP.ED 15:16
DX: R07.89 Other chest pain (principal); J45.909 Unspecified asthma, uncomplicated; F17.210 Nicotine dependence, cigarettes, uncomplicated; F41.9 Anxiety disorder, unspecified; F32.9 Major depressive disorder, single episode, unspecified; Z79.899 Other long term (current) drug therapy; I10 Essential (primary) hypertension; Z88.0 Allergy status to penicillin
CPT/HCPCS: 96372; 99283; 99284; J1885

== ENCOUNTER 2020-02-12 23:21 | Emergency (ER) | payer SELFPAY ==
[2020-02-12] MEDS ORDERED: Fluorescein 1 MG Ophth Strip EYEBOTH ONE (23:27)
[2020-02-12] MEDS ORDERED: Proparacaine 0.5% Ophth Soln 15 ML Bottle EYEBOTH ONE (23:28)
[2020-02-12] MEDS ORDERED: Erythromycin Base 0.5% Ophth Oint 1 GM Tube EYEBOTH ONE (23:47)
--- NOTE | 2020-02-12 23:47 | EDM.PDOC ---
ED HPI GENERAL MEDICAL PROBLEM - General Chief Complaint: Eye Problems Stated Complaint: FLASH BURN BOTH EYES Time Seen by Provider: 02/12/20 23:39 Source of Information: Reports: Patient History Limitations: Reports: No Limitations - History of Present Illness INITIAL COMMENTS - FREE TEXT/NARRATIVE: Sidney is a 39-year-old male presenting to the ED with severe bilateral eye chandan n. Patient was in his usual state of health until earlier today when he was stick welding indoors. He was wearing a shield but the cobalt was not a dark enough grade resulting in flash martínez to both eyes. 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 He comes in with severe eye pain, photophobia, and a little bit of blurred vision. His pain is a 10 out of 10 on presentation. He states it feels like sand is in his eyes. - Related Data Allergies Allergy/AdvReac Type Severity Reaction Status Date / Time Penicillins Allergy Unknown Rash Verified 02/12/20 23:38 Home Meds: Home Meds NK [No Known Home Meds] 02/12/20 [History] Past Medical History HEENT History: Reports: Other (See Below) Other HEENT History: dental caries Cardiovascular History: Reports: Blood Clots/VTE/DVT, Hypertension Other Cardiovascular History: 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 hx of blood clots neck arms back Respiratory History: Reports: Asthma Gastrointestinal History: Reports: Other (See Below) Other Gastrointestinal History: recent constipation. blood in stool 2016 Genitourinary History: Reports: Dialysis, Renal Disease Other Genitourinary History: kidney failure due to hypertension and rhabdomyolysis Musculoskeletal History: Reports: Back Pain, Chronic, Fracture, Other (See Below) Other Musculoskeletal History: Rhabdomyolysis from work injury to his low back Neurological History: Reports: Concussion, Migraines Psychiatric History: Reports: Addiction, Anxiety, Depression, Suicide Attempt, Suicidal Ideation Other Psychiatric History: clean at least a year Hematologic History: Reports: Other (See Below) Other Hematologic History: hx of clotting disorder - Infectious Disease History Infectious Disease History: Reports: Chicken Pox - Past Surgical History Musculoskeletal Surgical History: Reports: Arthroscopic Knee Social & Family History - Family History Family Medical History: No Pertinent Family History Hematologic: Reports: Other (See Below) Other Hematologic Family History: clotting disorder - Caffeine Use Caffeine Use: Reports: Soda ED ROS GENERAL - Review of Systems Review Of Systems: See Below HEENT: Reports: Eye Discharge (Increased lacrimation, some purulent discharge from the right eye. Photophobia.), Eye Pain, Vision Change (Blurred vision.) Neurological: Reports: No Symptoms ED EXAM GENERAL W FULL EYE - Physical Exam Exam: See Below Exam Limited By: No Limitations General Appearance: Alert, Anxious, Moderate Distress Eye Exam: Bilateral Eye: Conjunctival Injection, EOMI, PERRL Eyelids: Bilateral: Normal Appearance Conjunctiva & Sclera: Bilateral: Conjunctival Edema, Injected Cornea Exam: Bilateral: Normal Appearance, Examined with Flourescein (No fluorescein dye uptake, however, there was a small amount of purulent discharge from the right eye in the conjunctival fold.) Extraocular Movements: Bilateral: Intact Pupils: Normal Accommodation Pupillary Size: Bilateral: 2 mm Pupillary Reaction: Bilateral: Brisk Anterior Chamber: Bilateral: Normal Appearance Head: Atraumatic, Normocephalic. No: Facial Swelling, Facial Tenderness Neurological: Alert, Oriented, Normal Cognition, No Motor/Sensory Deficits Skin Exam: Warm, Dry, Intact, Normal Color, No Rash Course - Vital Signs Last Recorded V/S: Last Vital Signs Temp 37.1 C 02/12/20 23:37 Pulse 106 H 02/12/20 23:37 Resp 20 02/12/20 23:37 BP 154/96 H 02/12/20 23:37 Pulse Ox 96 02/12/20 23:37 - Orders/Labs/Meds Meds: Medications Discontinued Medications Generic Name Dose Route Start Last Admin Trade Name Freq PRN Reason Stop Dose Admin Erythromycin 1 gm 02/12/20 23:47 Erythromycin 0.5% Ophth Oint EYEBOTH 02/12/20 23:48 ONETIME ONE Fluorescein Sodium 1 mg 02/12/20 23:27 02/12/20 23:43 Ful-Monica EYEBOTH 02/12/20 23:28 1 mg ONETIME ONE Administration Proparacaine HCl 2 ml 02/12/20 23:28 02/12/20 23:43 Proparacaine 0.5% Ophth Soln EYEBOTH 02/12/20 23:29 2 ml ONETIME ONE Administration - Re-Assessments/Exams Free Text/Narrative Re-Assessment/Exam: Sidney is a 39-year-old male presenting to the ED with bilateral eye pain, photophobia, and the sensation of sand in the eyes 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 The patient was indoors and was using a helmet that did not have an adequate cobalt shield resulting in flash martínez to both eyes. 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 He comes in with blurred vision in both eyes, severe pain, redness, and some swelling of the conjunctiva. The eyes were examined after proparacaine 0.05% was instilled in the eyes followed by fluorescein. There was no fluorescein uptake in either eye, however, the right I did have purulent discharge in the conjunctival fold. There was significant conjunctival injection in both eyes. There was no evidence of either ulceration or abrasion of the cornea. Installation of the proparacaine resulted in immediate relief of pain. My plan is to treat this with erythromycin ophthalmic ointment 0.5% applied 3 times a day for 3 days to not only lubricate the eye but also prevent further infection. I advised the patient to wear dark glasses and avoid direct sunlight as this will irritate the eyes further. He should refrain from any welding until recovered and use an adequate welding shield to protect the eyes. In addition to the erythromycin ophthalmic ointment, I did send the patient home with a small amount of hydrocodone for pain control. The patient inquired about the use of proparacaine which I told him was not be good as this is a topical anesthetic and could cause more damage to his eye over time. Indications to return to the ED were discussed and patient was suitable for discharge in satisfactory condition. Departure - Departure Time of Disposition: 23:51 Disposition: Home, Self-Care 01 Condition: Good Clinical Impression: UV keratitis Qualifiers: Laterality: bilateral Qualified Code(s): H16.133 - Photokeratitis, bilateral - Discharge Information *PRESCRIPTION DRUG MONITORING PROGRAM REVIEWED*: Not Applicable *COPY OF PRESCRIPTION DRUG MONITORING REPORT IN PATIENT RICHARD: Not Applicable Instructions: Ultraviolet Keratitis, [id number] Referrals: PCP,None [Primary Care Provider] - Forms: ED Department Discharge Care Plan Goals: Am starting you on erythromycin ophthalmic ointment to apply to both eyes 3 times a day for 3 days. In addition, I am sending home with a small amount of hydrocodone for pain control. Try to avoid direct sunlight as this will continue to cause irritation to the eyes. Your vision may be slightly blurry over the next couple of days due to the erythromycin ointment which will change the refractory of light 3 your eye but will also lubricate and prevent it from getting infected. I have enclosed a work note for you excluding you from work over the next 36 hours. Make sure that you wear an adequate welding shield especially with stick welding which admits a very significant amount of UV radiation. Sepsis Event Note (ED) - Evaluation Sepsis Screening Result: No Definite Risk - Focused Exam Vital Signs: Vital Signs Temp Pulse Resp BP Pulse Ox 02/12/20 23:37 37.1 C 106 H 20 154/96 H 96 - Problem List & Annotations (1) UV keratitis SNOMED Code(s): 7357172 Code(s): H16.139 - PHOTOKERATITIS, UNSPECIFIED EYE Status: Acute Priority: Medium Current Visit: Yes Qualifiers: Laterality: bilateral Qualified Code(s): H16.133 - Photokeratitis, bilateral - Problem List Review Problem List Initiated/Reviewed/Updated: Yes
[2020-02-13 03:18] VITALS: BP 154/96; PULSE 106
== END 2020-02-13 | disposition home or self-care (01) ==
LOC: JP.ED 23:21
DX: H16.133 Photokeratitis, bilateral (principal); I10 Essential (primary) hypertension; J45.909 Unspecified asthma, uncomplicated; F41.9 Anxiety disorder, unspecified; F32.9 Major depressive disorder, single episode, unspecified; Z88.0 Allergy status to penicillin
CPT/HCPCS: 99283; A9270

== ENCOUNTER 2020-09-15 04:10 | Emergency (ER) | payer SELFPAY ==
[2020-09-15 04:20] VITALS: BP 165/100; PULSE 121
[2020-09-15] MEDS ORDERED: Proparacaine 0.5% Ophth Soln 15 ML Bottle EYEBOTH ONE (04:22)
--- NOTE | 2020-09-15 04:42 | EDM.PDOC ---
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 He got up this morning and has eye pain typical of Welders flash. This has happened to him before. Onset: Unknown/Unsure Location: Reports: Other (Both eyes, the right worse than the left) Worsens with: Reports: Other (Light exposure, he is photophobic) Bilateral Eye Pain Score (Numeric/FACES): 5 - Related Data Allergies Allergy/AdvReac Type Severity Reaction Status Date / Time Penicillins Allergy Unknown Rash Verified 09/15/20 04:21 Home Meds: Home Meds NK [No Known Home Meds] 02/12/20 [History] Past Medical History HEENT History: Reports: Other (See Below) Other HEENT History: dental caries Cardiovascular History: Reports: Blood Clots/VTE/DVT, Hypertension Other Cardiovascular History: 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 hx of blood clots neck arms back Respiratory History: Reports: Asthma Gastrointestinal History: Reports: Other (See Below) Other Gastrointestinal History: recent constipation. blood in stool 2016 Genitourinary History: Reports: Dialysis, Renal Disease Other Genitourinary History: kidney failure due to hypertension and rhabdomyolysis Musculoskeletal History: Reports: Back Pain, Chronic, Fracture, Other (See Below) Other Musculoskeletal History: Rhabdomyolysis from work injury to his low back Neurological History: Reports: Concussion, Migraines Psychiatric History: Reports: Addiction, Anxiety, Depression, Suicide Attempt, Suicidal Ideation Other Psychiatric History: clean at least a year Hematologic History: Reports: Other (See Below) Other Hematologic History: hx of clotting disorder - Infectious Disease History Infectious Disease History: Reports: Chicken Pox - Past Surgical History HEENT Surgical History: Reports: None Cardiovascular Surgical History: Reports: None Respiratory Surgical History: Reports: None GI Surgical History: Reports: None Male Surgical History: Reports: None Neurological Surgical History: Reports: None Musculoskeletal Surgical History: Reports: Arthroscopic Knee Social & Family History - Family History Family Medical History: No Pertinent Family History Hematologic: Reports: Other (See Below) Other Hematologic Family History: clotting disorder - Tobacco Use Tobacco Use Status *Q: Current Every Day Tobacco User Years of Tobacco use: 25 Packs/Tins Daily: 0.5 - Caffeine Use Caffeine Use: Reports: Coffee, Soda - Recreational Drug Use Recreational Drug Use: Yes Recreational Drug Type: Reports: Marijuana/Hashish ED ROS ENT - Review of Systems Review Of Systems: See Below Constitutional: Denies: Fever, Chills HEENT: Reports: Dental Pain (Struggling with a left "infected tooth".), Eye Pain Respiratory: Reports: No Symptoms GI/Abdominal: Reports: No Symptoms Neurological: Denies: Headache Psychiatric: Reports: Anxiety ED EXAM, ENT - Physical Exam Exam: See Below Exam Limited By: No Limitations General Appearance: Alert, Moderate Distress Eye Exam: Bilateral Eye: PERRL Head: Atraumatic Respiratory/Chest: No Respiratory Distress Neurological: Alert, Oriented Psychiatric: Anxious Skin: Warm, Dry Course - Vital Signs Last Recorded V/S: Last Vital Signs Temp 97.0 F 09/15/20 04:19 Pulse 121 H 09/15/20 04:19 Resp 16 09/15/20 04:19 BP 165/100 H 09/15/20 04:19 Pulse Ox 98 09/15/20 04:19 - Orders/Labs/Meds Meds: Medications Discontinued Medications Generic Name Dose Route Start Last Admin Trade Name Sydney PRN Reason Stop Dose Admin Ibuprofen 600 mg 09/15/20 04:43 09/15/20 04:45 Ibuprofen 600 Mg Tab PO 09/15/20 04:44 600 mg ONETIME ONE Administration Proparacaine HCl 1 ml 09/15/20 04:22 09/15/20 04:31 Proparacaine 0.5% Ophth Soln 15 Ml Bottle EYEBOTH 09/15/20 04:23 1 ml ONETIME ONE Administration - Re-Assessments/Exams Free Text/Narrative Re-Assessment/Exam: 09/15/20 04:39 Proparacaine drops were placed in each eye which provided significant relief. Fluorescein staining revealed very little uptake of fluorescein, no significant evidence of keratitis. Patient will be placed on erythromycin ointment 3 times a day, and was also given a prescription for oral clindamycin for his dental infection. I encouraged him to see an rcis tomorrow for follow-up if he still needs proparacaine drops by mid afternoon. He can use the drops every 2-3 hours. Departure - Departure Time of Disposition: 04:51 Disposition: Home, Self-Care 01 Clinical Impression: Dental abscess UV keratitis Qualifiers: Laterality: bilateral Qualified Code(s): H16.133 - Photokeratitis, bilateral - Discharge Information Instructions: Ultraviolet Keratitis, [id number] Referrals: PCP,None [Primary Care Provider] - Forms: ED Department Discharge Care Plan Goals: Put a small amount of antibiotic ointment in each eye 3 times a day until you see the rcis later today. Per [place] at the [facility] or the [place] [facility] will likely fit you in if you tell them your situation. Take the oral antibiotic for your tooth as directed and see a dentist soon as possible. Use the numbing drops in your eyes every couple hours until you see the rcis later today. Sepsis Event Note (ED) - Evaluation Sepsis Screening Result: No Definite Risk - Focused Exam Vital Signs: Vital Signs Temp Pulse Resp BP Pulse Ox 09/15/20 04:19 97.0 F 121 H 16 165/100 H 98
[2020-09-15] MEDS ORDERED: Ibuprofen 600 MG Tab PO ONE (04:43)
== END 2020-09-15 04:52 | disposition home or self-care (01) ==
LOC: JP.ED 04:10
DX: K04.7 Periapical abscess without sinus (principal); H16.133 Photokeratitis, bilateral; I10 Essential (primary) hypertension; Z88.0 Allergy status to penicillin; Z72.0 Tobacco use
CPT/HCPCS: 99283; A9270

== ENCOUNTER 2023-04-05 05:33 | Emergency (ER) | payer MEDICAID ==
[2023-04-05] MEDS ORDERED: Proparacaine 0.5% Ophth Soln 15 ML Bottle EYEBOTH STA (05:47)
[2023-04-05 05:58] VITALS: BP 161/98; PULSE 109
== END 2023-04-05 06:24 | disposition home or self-care (01) ==
LOC: JP.ED 05:33
DX: S05.02XA Injury of conjunctiva and corneal abrasion without foreign body, left eye, initial encounter (principal); T15.92XA Foreign body on external eye, part unspecified, left eye, initial encounter; I10 Essential (primary) hypertension; F17.210 Nicotine dependence, cigarettes, uncomplicated; Z88.0 Allergy status to penicillin; W45.8XXA Other foreign body or object entering through skin, initial encounter
CPT/HCPCS: 99283; A9270

== ENCOUNTER 2023-09-21 11:02 | Emergency (ER) | payer SELFPAY ==
[2023-09-21 11:57] VITALS: BP 171/104; PULSE 91
== END 2023-09-21 14:00 | disposition home or self-care (01) ==
LOC: JP.ED 11:02
DX: S09.90XA Unspecified injury of head, initial encounter (principal); I10 Essential (primary) hypertension; F17.210 Nicotine dependence, cigarettes, uncomplicated; W13.2XXA Fall from, out of or through roof, initial encounter; Y93.89 Activity, other specified
CPT/HCPCS: 70450; 70450-26; 72125; 72125-26; 76377; 76377-26; 99284

== ENCOUNTER 2023-10-28 17:14 | Emergency (ER) | payer SELFPAY ==
[2023-10-28 17:29] VITALS: BP 139/89; PULSE 92
== END 2023-10-28 18:39 | disposition home or self-care (01) ==
LOC: JP.ED 17:14
DX: M25.511 Pain in right shoulder (principal); I10 Essential (primary) hypertension; F17.210 Nicotine dependence, cigarettes, uncomplicated; W50.0XXA Accidental hit or strike by another person, initial encounter
CPT/HCPCS: 73010-26-RT; 73010-RT; 73030-26-RT; 73030-RT; 99283

== ENCOUNTER 2024-10-04 23:27 | Emergency (ER) | payer SELFPAY ==
[2024-10-05] MEDS: Aluminum Hydroxide/Magnesium Hydroxide/Simethicone Susp 30 ML Cup PO ONE (00:04)
[2024-10-05 00:14] LABS: BLOOD UREA NITROGEN,BUN 31.0 mg/dL (7-18); CARBON DIOXIDE,CO2 26.0 mmol/L (21-32); CHLORIDE,CL 97.0 mmol/L (100-108); CREATININE 2.8 mg/dL (0.8-1.3); EST CRCL DRUG DOSING (CG) 29.9 mL/min; ESTIMATED GFR 28.0 mL/min (>60); GLUCOSE RANDOM 134.0 mg/dL (74-106); POTASSIUM,K 3.5 mmol/L (3.6-5.2); SODIUM,NA 137.0 mmol/L (140-148)
[2024-10-05 01:02] VITALS: BP 137/102; PULSE 80
== END 2024-10-05 01:03 | disposition home or self-care (01) ==
LOC: JP.ED 23:27
DX: E86.0 Dehydration (principal); I12.9 Hypertensive chronic kidney disease with stage 1 through stage 4 chronic kidney disease, or unspecified chronic kidney disease; N18.9 Chronic kidney disease, unspecified; F17.210 Nicotine dependence, cigarettes, uncomplicated
CPT/HCPCS: 36415; 80048; 96360; 99284; A9270; J7030